=== PATIENT | female | born 2000 | race Hispanic/Latino ===

== ENCOUNTER 2023-07-06 18:52 | Emergency (ER) | payer MEDICAID, SELFPAY ==
[~2023-07-06] VITALS: Ht 152.4 cm; Wt 41.6 kg
[2023-07-06] MEDS ORDERED: LORazepam 0.5 MG TAB PO STA (20:03)
[2023-07-06] MEDS ORDERED: HALOPERIDOL 5MG/ML 1ML VIAL IM ONE (20:10)
[2023-07-06] MEDS ORDERED: LORazepam 2 MG/ML 1ML VIAL IM ONE (20:10)
[2023-07-06 21:13] LABS: HEMATOCRIT 37.5 % (36.0-47.0); HEMOGLOBIN 12.9 g/dl (12.0-15.5); MEAN CORPUSCULAR HEMOGLOBIN 33.5 pg (27.0-33.0); MEAN CORPUSCULAR HGB CONC 34.4 g/dl (32.0-36.5); MEAN CORPUSCULAR VOLUME 97.4 fl (80.0-96.0); PLATELET COUNT, AUTOMATED 278 10^3/uL (150-450); RED BLOOD COUNT 3.85 10^6/uL (4.00-5.40); WHITE BLOOD COUNT 10.5 10^3/uL (4.0-10.0)
[2023-07-06 21:38] LABS: THYROID STIMULATING HORMONE 8.318 uIU/ML (0.55-4.78)
[2023-07-06 21:42] LABS: ETHYL ALCOHOL (ETHANOL) < 0.003 % (0.000-0.010)
[2023-07-06 21:44] LABS: ALBUMIN 3.9 G/DL (3.2-5.2); ALKALINE PHOSPHATASE 70 U/L (46-116); ALT/SGPT 67 U/L (7.0-40); AST/SGOT 34 U/L (<34); BILIRUBIN,DIRECT 0.2 MG/DL (<0.4); BILIRUBIN,TOTAL 0.5 MG/DL (0.3-1.2); BLOOD UREA NITROGEN 16 MG/DL (9-23); CALCIUM LEVEL 8.9 MG/DL (8.5-10.1); CARBON DIOXIDE LEVEL 25 MMOL/L (20-31); CHLORIDE LEVEL 107 MMOL/L (98-107); CREATININE FOR GFR 0.51 MG/DL (0.55-1.30); GLOMERULAR FILTRATION RATE > 60.0 (>60); GLUCOSE, FASTING 126 MG/DL (60-100); POTASSIUM SERUM 3.6 MMOL/L (3.5-5.1); SALICYLATE LEVEL < 3.0 MG/DL (<30); SODIUM LEVEL 139 MMOL/L (136-145); TOTAL PROTEIN 7.1 G/DL (5.7-8.2)
[2023-07-06 22:00] LABS: HCG, SERUM QUALITATIVE NEGATIVE (NEGATIVE)
[2023-07-07 01:50] VITALS: BP 102/62; TEMP 97.4; O2SAT 98
== END 2023-07-07 02:07 | disposition home or self-care (01) ==
LOC: M ED 18:52
DX: F43.0 Acute stress reaction (principal); F43.12 Post-traumatic stress disorder, chronic; F84.0 Autistic disorder
CPT/HCPCS: 80048; 80076; 80143; 82077; 84443; 84703; 85027; 87635; 96372; 99284; J1630; J2060

== ENCOUNTER 2023-08-16 03:19 | Emergency (ER) | payer MEDICAID ==
[~2023-08-16] VITALS: Ht 157.5 cm; Wt 46.9 kg
[2023-08-16] MEDS: diphenhydrAMINE 50MG/ML VIAL IM ONE (04:22)
[2023-08-16] MEDS: LORazepam 2 MG/ML 1ML VIAL IM ONE (04:22)
[2023-08-16] MEDS: HALOPERIDOL 5MG/ML 1ML VIAL IM ONE (04:22)
[2023-08-16 05:05] LABS: HEMATOCRIT 38.4 % (36.0-47.0); HEMOGLOBIN 13.2 g/dl (12.0-15.5); MEAN CORPUSCULAR HEMOGLOBIN 33.2 pg (27.0-33.0); MEAN CORPUSCULAR HGB CONC 34.4 g/dl (32.0-36.5); MEAN CORPUSCULAR VOLUME 96.5 fl (80.0-96.0); PLATELET COUNT, AUTOMATED 250 10^3/uL (150-450); RED BLOOD COUNT 3.98 10^6/uL (4.00-5.40); WHITE BLOOD COUNT 8.3 10^3/uL (4.0-10.0)
[2023-08-16 05:30] VITALS: BP 122/78; TEMP 97.8; O2SAT 98
[2023-08-16 05:32] LABS: ETHYL ALCOHOL (ETHANOL) 0.004 % (0.000-0.010)
[2023-08-16 05:33] LABS: SALICYLATE LEVEL < 3.0 MG/DL (<30)
[2023-08-16 05:34] LABS: ALBUMIN 4.2 G/DL (3.2-5.2); ALKALINE PHOSPHATASE 58 U/L (46-116); ALT/SGPT 46 U/L (7.0-40); AST/SGOT 26 U/L (<34); BILIRUBIN,DIRECT 0.3 MG/DL (<0.4); BILIRUBIN,TOTAL 0.8 MG/DL (0.3-1.2); BLOOD UREA NITROGEN 11 MG/DL (9-23); CALCIUM LEVEL 8.8 MG/DL (8.5-10.1); CARBON DIOXIDE LEVEL 19 MMOL/L (20-31); CHLORIDE LEVEL 106 MMOL/L (98-107); CREATININE FOR GFR 0.54 MG/DL (0.55-1.30); GLOMERULAR FILTRATION RATE > 60.0 (>60); GLUCOSE, FASTING 136 MG/DL (60-100); POTASSIUM SERUM 3.1 MMOL/L (3.5-5.1); SODIUM LEVEL 137 MMOL/L (136-145); TOTAL PROTEIN 7.1 G/DL (5.7-8.2)
[2023-08-16 05:36] LABS: THYROID STIMULATING HORMONE 4.365 uIU/ML (0.55-4.78)
[2023-08-16 05:39] LABS: HCG, SERUM QUALITATIVE NEGATIVE (NEGATIVE)
[2023-08-16 05:57] LABS: AMPHETAMINES LEVEL URINE NEGATIVE (NEGATIVE); BARBITURATES URINE NEGATIVE (NEGATIVE); BENZODIAZEPINES URINE NEGATIVE (NEGATIVE); CANNABINOIDS URINE NEGATIVE (NEGATIVE); COCAINE METABOLITE URINE NEGATIVE (NEGATIVE); METHADONE URINE NEGATIVE (NEGATIVE); OPIATES URINE NEGATIVE (NEGATIVE); PHENCYCLIDINE URINE NEGATIVE (NEGATIVE)
[2023-08-16] MEDS ORDERED: HOME MED LIST COMPLETE! XX SCH (06:20)
[2023-08-16] MEDS: POTASSIUM CHLORIDE 10MEQ SR TABLET PO ONE (08:33)
== END 2023-08-16 12:00 | disposition home or self-care (01) ==
LOC: M ED 03:19
DX: F84.0 Autistic disorder (principal); F41.9 Anxiety disorder, unspecified
CPT/HCPCS: 80048; 80076; 80143; 80307; 82077; 84443; 84703; 85027; 87635; 96372; 99285; J1200; J1630; J2060

== ENCOUNTER 2023-08-29 14:30 | Emergency (ER) | payer MEDICAID ==
[~2023-08-29] VITALS: Ht 154.9 cm; Wt 44.5 kg
[2023-08-29] MEDS: LORazepam 0.5 MG TAB PO ONE ×2 (15:13→19:40)
[2023-08-29 15:46] LABS: AMPHETAMINES LEVEL URINE NEGATIVE (NEGATIVE); BARBITURATES URINE NEGATIVE (NEGATIVE); BENZODIAZEPINES URINE NEGATIVE (NEGATIVE); CANNABINOIDS URINE NEGATIVE (NEGATIVE); COCAINE METABOLITE URINE NEGATIVE (NEGATIVE); METHADONE URINE NEGATIVE (NEGATIVE); OPIATES URINE NEGATIVE (NEGATIVE); PHENCYCLIDINE URINE NEGATIVE (NEGATIVE)
[2023-08-29 16:20] LABS: HEMATOCRIT 42.3 % (36.0-47.0); HEMOGLOBIN 14.7 g/dl (12.0-15.5); MEAN CORPUSCULAR HEMOGLOBIN 33.3 pg (27.0-33.0); MEAN CORPUSCULAR HGB CONC 34.8 g/dl (32.0-36.5); MEAN CORPUSCULAR VOLUME 95.9 fl (80.0-96.0); PLATELET COUNT, AUTOMATED 300 10^3/uL (150-450); RED BLOOD COUNT 4.41 10^6/uL (4.00-5.40); WHITE BLOOD COUNT 9.9 10^3/uL (4.0-10.0)
[2023-08-29 16:39] LABS: ETHYL ALCOHOL (ETHANOL) < 0.003 % (0.000-0.010)
[2023-08-29 16:41] LABS: ALBUMIN 4.5 G/DL (3.2-5.2); ALKALINE PHOSPHATASE 64 U/L (46-116); ALT/SGPT 15 U/L (7.0-40); AST/SGOT 13 U/L (<34); BILIRUBIN,DIRECT 0.3 MG/DL (<0.4); BILIRUBIN,TOTAL 0.8 MG/DL (0.3-1.2); BLOOD UREA NITROGEN 13 MG/DL (9-23); CALCIUM LEVEL 9.6 MG/DL (8.5-10.1); CARBON DIOXIDE LEVEL 26 MMOL/L (20-31); CHLORIDE LEVEL 103 MMOL/L (98-107); CREATININE FOR GFR 0.62 MG/DL (0.55-1.30); GLOMERULAR FILTRATION RATE > 60.0 (>60); GLUCOSE, FASTING 170 MG/DL (60-100); POTASSIUM SERUM 3.6 MMOL/L (3.5-5.1); SALICYLATE LEVEL < 3.0 MG/DL (<30); SODIUM LEVEL 136 MMOL/L (136-145); TOTAL PROTEIN 7.9 G/DL (5.7-8.2)
[2023-08-29 16:43] LABS: THYROID STIMULATING HORMONE 5.676 uIU/ML (0.55-4.78)
[2023-08-29 16:46] LABS: HCG, SERUM QUALITATIVE NEGATIVE (NEGATIVE)
[2023-08-29] MEDS: HALOPERIDOL 5MG/ML 1ML VIAL IM ONE (20:10)
[2023-08-29] MEDS: LORazepam 2 MG/ML 1ML VIAL IM ONE (20:10)
[2023-08-30 11:28] VITALS: BP 109/77; TEMP 97.9; O2SAT 100
== END 2023-08-30 12:28 | disposition home or self-care (01) ==
LOC: M ED 14:30
DX: F84.0 Autistic disorder (principal); F51.01 Primary insomnia
CPT/HCPCS: 80048; 80076; 80143; 80307; 81001; 82077; 84443; 84703; 85027; 96372; 99285; J1630; J2060

== ENCOUNTER 2023-09-01 23:58 | Emergency (ER) | payer MEDICAID ==
[~2023-09-01] VITALS: Ht 154.9 cm; Wt 47.7 kg
[2023-09-01 23:59] VITALS: BP 134/86; TEMP 98.4; O2SAT 97
[2023-09-02] MEDS: HALOPERIDOL 5MG/ML 1ML VIAL IM STA (02:37)
[2023-09-02] MEDS: LORazepam 2 MG/ML 1ML VIAL IM STA (02:37)
[2023-09-02] MEDS ORDERED: TRAZ-252 PO (06:48)
[2023-09-02] MEDS ORDERED: RISP0.5T21 PO (06:48)
[2023-09-02] MEDS: risperiDONE 0.5 MG TAB PO ONE (06:52)
== END 2023-09-02 07:10 | disposition home or self-care (01) ==
LOC: M ED 23:58
DX: F84.0 Autistic disorder (principal); Z79.899 Other long term (current) drug therapy; Z79.83 Long term (current) use of bisphosphonates
CPT/HCPCS: 96372; 99282; J1630; J2060

== ENCOUNTER 2023-10-05 17:17 | Emergency (ER) | payer MEDICAID ==
[2023-10-05 17:17] VITALS: BP 125/77; TEMP 98.4; O2SAT 99
[~2023-10-05 17:17] MED LIST: RISP0.5T21 PO; TRAZ-252 PO
[2023-10-05] MEDS ORDERED: RISP-105 (17:27)
== END 2023-10-05 22:40 | disposition left against medical advice (07) ==
LOC: M ED 17:17
DX: Z53.21 Procedure and treatment not carried out due to patient leaving prior to being seen by health care provider (principal)

== ENCOUNTER → 2024-01-31 | Outpatient (CLI) | payer MEDICAID, OTHER ==
[~2024-01-31] MED LIST changes: +RISP-105
[2024-01-31 13:33] LABS: HEMATOCRIT 42.4 % (36.0-47.0); HEMOGLOBIN 14.3 g/dl (12.0-15.5); MEAN CORPUSCULAR HEMOGLOBIN 32.4 pg (27.0-33.0); MEAN CORPUSCULAR HGB CONC 33.7 g/dl (32.0-36.5); MEAN CORPUSCULAR VOLUME 96.1 fl (80.0-96.0); PLATELET COUNT, AUTOMATED 250 10^3/uL (150-450); RED BLOOD COUNT 4.41 10^6/uL (4.00-5.40); WHITE BLOOD COUNT 5.5 10^3/uL (4.0-10.0)
[2024-01-31 14:00] LABS: CHOLESTEROL LEVEL 133 MG/DL (<200); CHOLESTEROL RISK RATIO 2.81 (<5); HDL CHOLESTEROL 47.2 MG/DL (>40); LDL CHOLESTEROL 70.8 MG/DL (<100); NON-HDL-C 85.8 MG/DL; TRIGLYCERIDES LEVEL 75 MG/DL (<150)
[2024-01-31 14:02] LABS: HEPATITIS B SURFACE ANTIBODY POSITIVE (POSITIVE)
[2024-01-31 14:12] LABS: HEPATITIS B SURFACE ANTIGEN NEGATIVE (NEGATIVE)
[2024-01-31 14:25] LABS: HIV 1&2 SCREEN NEGATIVE (NEGATIVE)
[2024-01-31 14:34] LABS: HEPATITIS C VIRUS ABY INDEX 0.02 INDEX (<0.8)
[2024-01-31 17:12] LABS: GC DNA AMPLIFICATION NEGATIVE (NEGATIVE)
== END ==
LOC: M PLALAB 11:41
PROVIDERS: ATTEND Family Medicine
DX: Z00.00 Encounter for general adult medical examination without abnormal findings (principal); Z11.3 Encounter for screening for infections with a predominantly sexual mode of transmission; Z13.220 Encounter for screening for lipoid disorders

== ENCOUNTER → 2024-04-04 | Outpatient (REF) | payer MEDICAID ==
[2024-04-04 20:57] LABS: GC DNA AMPLIFICATION NEGATIVE (NEGATIVE)
== END ==
LOC: M SFHCPLAZ 17:04
PROVIDERS: ATTEND Family Medicine
DX: Z11.9 Encounter for screening for infectious and parasitic diseases, unspecified (principal)

== ENCOUNTER → 2024-06-12 | Outpatient (REF) | payer MEDICAID, OTHER | LOC: M SFHCWAGY 12:35 | PROVIDERS: ATTEND Nurse Practitioner Family | DX: N73.9 Female pelvic inflammatory disease, unspecified (principal) ==